=== PATIENT | female | born 1965 | race Caucasian/White ===

== ENCOUNTER 2022-02-22 20:07 | Observation (INO) | payer OTHER, SELFPAY ==
--- NOTE | ~2022-02-22 | XR_ITS ---
EXAM: XR ankle RT min 3V, XR foot RT min 3V DATE: 02/22/2022 20:46 (accession [id number]), 02/22/2022 20:47 (accession [id number]) HISTORY: fall today, lateral pain and swelling . COMPARISON: None available. FINDINGS: Normal mineralization. Minimally displaced oblique fracture of the distal right fibula at the level of the joint line. No other fracture. No lytic or blastic lesion. Joint spaces are maintain ed. Achilles enthesopathy. Mild hallux valgus. No erosion or periosteal change. IMPRESSION: Horn B type right fibular fracture. No other acute osseous finding in the right ankle or foot Reviewed, dictated and finalized at location K. IMPRESSION: Horn B type right fibular fracture. No other acute osseous finding in the right ankle or foot
--- NOTE | ~2022-02-22 | XR_ITS ---
EXAM: XR ankle LT min 3V, XR foot LT min 3V DATE: 02/22/2022 20:46 HISTORY: fall today, lateral pain and swelling . COMPARISON: None available. FINDINGS: Normal mineralization. Nondisplaced transverse fracture of the distal left fibula, below t he level of the joint line. No other fracture detected. No dislocation. No lytic or blastic lesion. M oderate hallux valgus. Plantar enthesopathy. No erosion or periosteal change. IMPRESSION: Horn A type distal left fibular fracture. Reviewed, dictated and finalized at location K. IMPRESSION: Horn A type distal left fibular fracture.
[2022-02-22 20:10] VITALS: BP 123/65; PULSE 81; RESP 17; TEMP 37.3; O2SAT 100
--- NOTE | 2022-02-22 20:19 | ED.LOWEXIN ---
HPI - Extremity Injury (Lower) General Chief Complaint: Extremity Injury, Lower Stated Complaint: Bilateral ankle pain and swelling - fall Time Seen by Provider: 02/22/22 20:18 History of Present Illness HPI Narrative: 56-year-old female presented emergency room complaining of bilateral ankle pain following a fall. Patient states that she was at a relatives house and misstepped falling down 1 stair. Patient states that she landed twisting her left ankle and then attempted overcorrect by landing on her right foot, which then in turn caused her to twist her right ankle. Patient states the left ankle hurts worse than the right. Pain is worse with movement. Patient unable to ambulate Related Data Allergies Allergy/AdvReac Type Severity Reaction Status Date / Time No Known Allergies Allergy Verified 02/22/22 20:29 Review of Systems Review of Systems: CONSTITUTIONAL: Denies fever, chills, or sweats. EYES: Denies visual changes, redness, or discharge. ENT: Denies rhinorrhea, congestion, sore throat, or otalgia. CARDIOVASCULAR: Denies chest pain, palpitations, or edema. RESPIRATORY: Denies cough or dyspnea. GASTROINTESTINAL: Denies abdominal pain, nausea, vomiting, or diarrhea. GENITOURINARY: Denies dysuria or hematuria. SKIN: Denies rash or itching. MUSCULOSKELETAL: Reports bilateral ankle pain NEUROLOGIC: Denies headache, numbness, dizziness, or weakness. PSYCHIATRIC: Denies anxiety or depression. Exam Narrative: GENERAL: Well-appearing, well-nourished, no physical limitations, and in no acute distress. HEAD: Normocephalic, atraumatic. EYES: Conjunctivae normal, PERRLA and EOMI. CHEST: Clear to auscultation. No respiratory distress. No wheezes rales or rhonchi. No tenderness. HEART: Regular rate and rhythm. No murmur heard. Normal peripheral pulses. EXTREMITIES: Right ankle: Tenderness to the lateral malleolus and anterior talofibular ligament with mild soft tissue swelling. No acute bony abnormality, no joint laxity, limited range of motion due to pain, neurovascular is intact distally Left ankle: Tenderness to the lateral malleolus with significant soft tissue swelling. Unable to test for joint laxity and range of motion due to pain. Neurovascular is intact distally no edema. No clubbing or cyanosis SKIN: Warm, dry, no rash. No noted wounds NEURO: No focal deficits. Alert and oriented x3. MAEW. CN's II-XI intact bilaterally PSYCH: Cooperative. Normal mood and affect. Course Vital Signs Vital signs: Vital Signs Temperature 37.3 C 02/22/22 20:10 Pulse Rate 81 02/22/22 20:10 Respiratory Rate 17 02/22/22 20:10 Blood Pressure 123/65 02/22/22 20:10 Pulse Oximetry 100 02/22/22 20:10 Oxygen Delivery Room Air 02/22/22 20:10 Temperature 37.3 C 02/22/22 20:10 Pulse Rate 89 02/22/22 22:58 Respiratory Rate 18 02/22/22 22:58 Blood Pressure 141/82 H 02/22/22 22:58 Pulse Oximetry 98 02/22/22 22:58 Oxygen Delivery Room Air 02/22/22 20:10 MDM - Extremity Injury (Lower) Lab Data Labs: Lab Results 02/22/22 Range/Units 21:54 SARS-CoV-2 RNA (RT-PCR) Negative Discharge Plan Discharge Clinical Impression: Adult failure to thrive, Bilateral ankle fractures Patient Disposition: Still a Patient Condition: Stable Time of Disposition: 22:31
[2022-02-22 22:37] LABS: SARS-CoV-2 RNA PCR Negative
[2022-02-22 22:58] VITALS: BP 141/82; PULSE 89; RESP 18; O2SAT 98
[2022-02-22 23:35] VITALS: BP 141/83; PULSE 86; RESP 18; TEMP 37.7; O2SAT 97
[2022-02-22 23:43] VITALS: BMI 30.1
--- NOTE | 2022-02-22 23:50 | ADMGEN ---
This patient, Marlena Meeks, was admitted to [facility] Surg Room 313-01. Patient/family oriented to hospital policies and general routines including ID bracelet, bed and alarms, visiting hours, pain management, procedures, bathroom and other care routines, personal items, smoking policy, room service/diet, and visiting hours. Information on how to activate the Rapid Response Team has been discussed. Patient/Family are encouraged to report perceived risks to care and to ask questions if they do not understand what they are told or what they should do.
[2022-02-23] MEDS: ACETAMINOPHEN 500 MG TABLET 1000 MG PO ×2 (00:06→09:27)
--- NOTE | 2022-02-23 02:00 | PM.IMHP ---
H&P: HPI History of Present Illness Date/Time: 02/23/22 02:00 Chief Complaint: Fall Narrative: This is a 56-year-old female who is visiting from [place], [place] she has been staying with friends today she had a fall when going down stairs patient was found to have bilateral malleolar fractures. Patient denies any loss of consciousness, no dizziness, no lightheadedness, no near syncope, or syncope. Patient is been admitted for further evaluation, management and treatment. Review of Systems Review of Systems: Fall with bilateral lower extremity malleolar fracture Constitutional: Constitutional: Denies chills, Denies fatigue, Denies fever(s), Denies malaise, Denies poor appetite and Denies weakness Eyes: Eyes: Denies change in vision ENT: Denies dysphagia, Denies vertigo, Denies odynophagia and Denies disequilibrium Cardiovascular: Cardiovascular: Denies chest pain, Denies syncope, Denies irregular heart rhythm, Denies lightheadedness, Denies palpitations and Denies dyspnea on exertion Respiratory: Respiratory: Denies chest congestion, Denies cough and Denies dyspnea Gastrointestinal: Gastrointestinal: Denies abdominal pain, Denies dyspepsia, Denies heartburn, Denies nausea and Denies vomiting Genitourinary: Genitourinary: Denies dysuria Musculoskeletal: Musculoskeletal: Reports abnormal gait, Reports deformity, Reports arthralgias, Reports joint swelling, Reports limited range of motion and Reports other (Bilateral malleolus) Integumentary/Breasts: Skin/Breast: Denies rash Neurologic: Denies vertigo, Denies dizziness, Denies focal weakness and Denies Sensory deficit (Neuro) Psychiatric: Psychiatric: Reports no additional psychiatric complaints and Reports as per HPI Endocrine: Endocrine: Denies cold intolerance, Denies fatigue, Denies flushing, Denies heat intolerance, Denies polyphagia, Denies polydipsia and Denies palpitations Hematologic/Lymphatic: Hematologic/Lymphatic: Reports no additional hematologic/lymphatic complaints and Reports as per HPI Allergic/Immunologic: Allergic/Immunologic: Reports no additional allergic/immunologic complaints and Reports as per HPI PMF Family History Family History (Updated 02/22/22 @ 23:56 by Lakeisha Mercado RN) Father Emphysema lung Mother Emphysema lung Social History Social History Smoking status: Former smoker Second hand tobacco smoke exposure: No Alcohol intake: current Substance use: never Substance use type: does not use Spiritual care concerns: No Meds Home Medications and Allergies Home Medications Medication Instructions Recorded Confirmed Type No Home Medications 02/23/22 02/23/22 History Allergies Allergy/AdvReac Type Severity Reaction Status Date / Time No Known Allergies Allergy Verified 02/22/22 20:29 Vital Signs Vital Signs - 24 hr 02/22/22 20:10 02/22/22 22:58 02/22/22 23:35 Temperature 99.2 F 99.9 F H Pulse Rate 81 89 86 Respiratory Rate 17 18 18 Blood Pressure 123/65 141/82 H 141/83 H Pulse Oximetry 100 98 97 Oxygen Delivery Room Air Exam Narrative: Patient is laying in the stretcher Const: General: comfortable, no acute distress, well developed, alert, awake and other (Well-appearing) Nutritional Appearance: average body habitus Orientation/consciousness: patient oriented x3 HENMT: Head: normal to inspection, normocephalic and atraumatic Ears: hearing grossly normal bilaterally Face and sinus: normal facial exam Eyes: General: appearance normal, both eyes and all related structures Pupils: Equal, round and reactive pupils present EOM: EOMs intact bilaterally Neck: Neck: full ROM, no lymphadenopathy and no JVD Thyroid: thyroid normal Lymphatic: no lymphadenopathy noted Resp: Effort & Inspection: normal respiratory effort and able to speak in complete sentences Auscultation: clear to auscultation bilaterally Cardio: Jugular ve
[2022-02-23 06:00] VITALS: BP 114/68; PULSE 72; RESP 16; TEMP 36.7; O2SAT 99
--- NOTE | 2022-02-23 08:45 | PM.IMPN ---
Progress Note: A&P Assessment and Plan (1) Bilateral ankle fractures: Code(s): S82.891A - Other fracture of right lower leg, initial encounter for closed fracture; S82.892A - Other fracture of left lower leg, initial encounter for closed fracture Status: Acute Assessment and Plan: Ankle xray Horn A fracture on the left fibula and a Horn B fracture of the right fibula Ortho consulted thank you for your help Will need PT/OT Pain medications on board Supportive care Follow-up in the outpatient setting Pain management Time Spent With Patient Time with patient: Greater than 35 minutes Subjective Date/time seen: 02/23/22844 Interval history: 02/23/22844 Patient seems to be doing well. She did state that she is having pain a 3/10 when she is not moving and a 9/10 when she is moving or sometimes when it is The unprovoked. She can not really describe the pain at this time. She did state that she is little tired to the pain. She denies any chest pain, shortness of breath, nausea, vomiting, diarrhea, constipation, weakness or fatigue. She did state that her was flying and today to come and get her to take her home. She did have more pain on the right than the left. Awaiting Orthopedics at this time patient will probably need PT and OT evaluations before she leaves. 02/23/22? 02:00 This is a 56-year-old female who is visiting from [facility] she has been staying with friends today she had a fall when going down stairs patient was found to have bilateral malleolar fractures.? Patient denies any loss of consciousness, no dizziness, no lightheadedness, no near syncope, or syncope.? Patient is been admitted for further evaluation, management and treatment. Review of Systems Review of Systems: All systems reviewed & are unremarkable except as noted in HPI and below Exam Const: General: cooperative, healthy appearing, no acute distress, well developed, alert and awake Nutritional Appearance: well nourished Orientation/consciousness: patient oriented x3 HENMT: Head: normal to inspection Ears: hearing grossly normal bilaterally General nose exam: Normal external nose present Mouth: Yes Normal oral and palatal mucosa present, Yes lip normal and Yes tongue normal Teeth and gingiva: abnormal tooth and associated gingiva and poor dentition Eyes: General: appearance normal, both eyes and all related structures Neck: Neck: normal visual inspection, full ROM, trachea midline and supple Chest: Chest palpation & inspection: normal inspection of the chest Resp: Effort & Inspection: normal respiratory effort and able to speak in complete sentences Auscultation: clear to auscultation bilaterally Cardio: Jugular venous distension: no JVD Rate: regular rate Rhythm: regular rhythm Heart sounds: S1 normal heart sound present and S2 normal heart sound present Peripheral pulses: Peripheral pulses 2+ throughout GI: Inspection: normal to inspection GI Palp: Yes Soft to palpation and No Tenderness to palpation present (GI) Auscultation: normal bowel sounds Skin: General skin exam: normal color and no rashes or lesions noted Lesions: no lesions Rashes: no rashes Trauma: no lacerations or abrasions Wounds: no wounds Hair: normal Nails: normal Neuro: General: patient oriented x3, moves all extremities and Normal light touch and pain sensation Speech: normal speech Gait exam (Neuro): Normal gait present Extrem: General: normal to inspection Right upper extremity: normal to inspection, full ROM and normal capillary refill Left upper extremity: normal to inspection, full ROM and normal capillary refill Right lower extremity: normal to inspection and ankle Details: abnormal ROM Left lower extremity: normal to inspection and ankle Details: abnormal ROM Psych: Appearance: grossly normal Objective Data Vital Signs Vital Signs: Vital Signs - 24 hr 02/22/22 20:10 02/22/22 22:58 06
[2022-02-23 09:33] LABS: Basophils Percent Auto 0.3 % (0.2-1.2); Eosinophils Percent Auto 0.6 % (0-4.4); Hematocrit 40.1 % (37.0-47.0); Hemoglobin 13.3 g/dL (12.0-15.0); Immature Granulocyte Absolute 0.02 K/mm3 (0.00-0.031); Immature Granulocyte Percent A 0.3 % (0-0.5); Lymphocytes Absolute Auto 1.78 K/mm3 (0.9-3.2); Mean Corpuscular HGB Conc 33.2 g/dl (32-36); Mean Corpuscular Hemoglobin 33.5 pg (26-34); Mean Platelet Volume 9.4 fl (7.4-10.4); Monocytes Absolute Auto 0.7 K/mm3 (0.1-0.6); Monocytes Percent Auto 9.1 % (2.6-8.5); Neutrophils Absolute Auto 4.6 K/mm3 (1.3-6.7); Neutrophils Percent Auto 64.7 % (45.5-73.1); Platelet Count Result 188 k/mm3 (150-375); Red Blood Count 3.97 M/mm3 (4.2-5.4); Red Cell Distribution Width 13.2 % (11.5-14.5); White Blood Count 7.1 K/mm3 (4.5-10.0)
[2022-02-23 09:47] LABS: Alanine Aminotransferase 25 U/L (6-35); Albumin Level 4.5 g/dL (3.5-5.1); Alkaline Phosphatase 86 U/L (38-126); Anion Gap 5 mmol/L (8-16); Aspartate Amino Transferase 29 U/L (14-36); Bilirubin,Total 0.8 mg/dL (0.2-1.3); Blood Urea Nitrogen 12 mg/dL (7-17); Calcium 8.9 mg/dL (8.4-10.2); Carbon Dioxide 29 mmol/L (22-30); Chloride 107 mmol/L (98-107); Estimated CRCL calculation 75 ml/min; Estimated Glomerular Filt Rate > 60; Glucose 91 mg/dL (65-110); Sodium 141 mmol/L (137-145)
--- NOTE | 2022-02-23 10:54 | PM.CNOR ---
Assessment and Plan Assessment and plan (1) Bilateral ankle fractures: Code(s): S82.891A - Other fracture of right lower leg, initial encounter for closed fracture; S82.892A - Other fracture of left lower leg, initial encounter for closed fracture Status: Acute Plan 56-year-old female with bilateral ankle fractures. At this point these are non surgical. I think the left one can be treated in an Aircast ankle stirrup at this point. On the right I would recommend re-x-ray in week everything stays put keeping her in the splint for another x-ray a week later. She is going to be heading back to [place] once her gets here in the next day or so and so will follow-up back home with the [facility] where she normally gets her care. Because of the relative immobility I recommend coated aspirin 325 milligram daily for at least six weeks. Thank you for the consultation. History of Present Illness HPI Consult date: 02/23/22 Consult reason: fracture Chief complaint: Bilateral ankle fractures Narrative: 56-year-old female who fell yesterday suffering bilateral ankle fractures. It is a Horn B right, a on left. He has both splinted in the emergency room. Not experiencing very much discomfort. Is currently traveling through the [place] as she is originally from [facility]. [facility] Past Medical History Medical History (Updated 02/23/22 @ 10:58 by Vargas Barclay MD) Bilateral ankle fractures Horn a on the left, Horn B on the right Family History Family History Father Emphysema lung Mother Emphysema lung Social History Social History Smoking status: Former smoker Second hand tobacco smoke exposure: No Alcohol intake: current Substance use: never Substance use type: does not use Spiritual care concerns: No Meds Home Medications and Allergies Home Medications Medication Instructions Recorded Confirmed Type No Home Medications 02/23/22 02/23/22 History Allergies Allergy/AdvReac Type Severity Reaction Status Date / Time No Known Allergies Allergy Verified 02/22/22 20:29 Vital Signs Vital Signs - 24 hr 02/22/22 20:10 02/22/22 22:58 02/22/22 23:35 Temperature 99.2 F 99.9 F H Pulse Rate 81 89 86 Respiratory Rate 17 18 18 Blood Pressure 123/65 141/82 H 141/83 H Pulse Oximetry 100 98 97 Oxygen Delivery Room Air 02/23/22 06:00 Temperature 98.0 F Pulse Rate 72 Respiratory Rate 16 Blood Pressure 114/68 Pulse Oximetry 99 Oxygen Delivery Exam Const: General: cooperative, alert and awake Orientation/consciousness: patient oriented x3 HENMT: Head: normal to inspection Ears: hearing grossly normal bilaterally Resp: Effort & Inspection: able to speak in complete sentences GI: Inspection: non-distended GI Palp: No abdominal tenderness Neuro: General: patient oriented x3 Extrem: Other: Exam of both lower extremities shows nicely fitting stirrup type ankle splints. Calves are negative. Good capillary refill and intact sensation noted to all the toes. Tenderness over the distal fibula bilaterally. Exam is otherwise unremarkable. Psych: Mental Status: mental status grossly normal Radiology Reports: Comments: EXAM:? XR ankle LT min 3V, XR foot LT min 3V DATE: 02/22/2022 20:46 HISTORY: fall today, lateral pain and swelling . COMPARISON:? None available. FINDINGS:? Normal mineralization. Nondisplaced transverse fracture of the distal left fibula, below the level of the joint line. No other fracture detected. No dislocation. No lytic or blastic lesion. Moderate hallux valgus. Plantar enthesopathy. No erosion or periosteal change. IMPRESSION: Horn A type distal left fibular fracture. Reviewed, dictated and finalized at location K. 20:
[2022-02-23 14:00] VITALS: BP 120/64; PULSE 70; RESP 18; TEMP 36.1; O2SAT 97
[2022-02-23] MEDS: ASPIRIN 325 MG ENTERIC TABLET PO (14:09)
[2022-02-23 22:00] VITALS: BP 117/68; PULSE 66; RESP 12; TEMP 36.4; O2SAT 100
[2022-02-23] MEDS: HYDROmorphone HCL INJ (*CRX) 1 MG/ML SYR 0.5 MG IV PUSH (22:00)
[2022-02-24 02:24] VITALS: O2SAT 98
[2022-02-24] MEDS: ACETAMINOPHEN 500 MG TABLET 1000 MG PO (05:38)
[2022-02-24 06:00] VITALS: BP 115/75; PULSE 67; RESP 16; TEMP 35.2; O2SAT 99
[2022-02-24 06:42] LABS: Basophils Percent Auto 0.5 % (0.2-1.2); Eosinophils Absolute Auto 0.1 K/mm3 (0-0.3); Eosinophils Percent Auto 1.1 % (0-4.4); Hematocrit 41.5 % (37.0-47.0); Hemoglobin 13.4 g/dL (12.0-15.0); Immature Granulocyte Absolute 0.02 K/mm3 (0.00-0.031); Immature Granulocyte Percent A 0.3 % (0-0.5); Lymphocytes Absolute Auto 2.24 K/mm3 (0.9-3.2); Lymphocytes Percent Auto 36.2 % (18.3-44.2); Mean Corpuscular HGB Conc 32.3 g/dl (32-36); Mean Corpuscular Hemoglobin 33.2 pg (26-34); Mean Corpuscular Volume 102.7 fl (80-100); Mean Platelet Volume 9.7 fl (7.4-10.4); Monocytes Absolute Auto 0.5 K/mm3 (0.1-0.6); Monocytes Percent Auto 8.6 % (2.6-8.5); Neutrophils Absolute Auto 3.3 K/mm3 (1.3-6.7); Neutrophils Percent Auto 53.3 % (45.5-73.1); Platelet Count Result 185 k/mm3 (150-375); Red Blood Count 4.04 M/mm3 (4.2-5.4); Red Cell Distribution Width 13.2 % (11.5-14.5); White Blood Count 6.2 K/mm3 (4.5-10.0)
[2022-02-24 07:02] LABS: Alanine Aminotransferase 20 U/L (6-35); Alkaline Phosphatase 79 U/L (38-126); Anion Gap 2 mmol/L (8-16); Aspartate Amino Transferase 23 U/L (14-36); Bilirubin,Total 0.9 mg/dL (0.2-1.3); Blood Urea Nitrogen 13 mg/dL (7-17); Calcium 8.5 mg/dL (8.4-10.2); Carbon Dioxide 32 mmol/L (22-30); Chloride 107 mmol/L (98-107); Estimated CRCL calculation 67 ml/min; Estimated Glomerular Filt Rate > 60; Glucose 101 mg/dL (65-110); Magnesium 2.4 mg/dL (1.6-2.3); Potassium 4.2 mmol/L (3.4-5.0); Sodium 141 mmol/L (137-145)
[2022-02-24] MEDS: ASPIRIN 325 MG ENTERIC TABLET PO (08:47)
--- NOTE | 2022-02-24 09:45 | PM.DS ---
DS: Admitting Diagnosis Discharge Date 02/24/2245 Admitting Diagnosis Bilateral ankle fracture DS: Discharge Diagnosis Discharge Diagnosis (1) Bilateral ankle fractures: Code(s): S82.891A - Other fracture of right lower leg, initial encounter for closed fracture; S82.892A - Other fracture of left lower leg, initial encounter for closed fracture Status: Acute Assessment and Plan: Ankle xray Horn A fracture on the left fibula and a Horn B fracture of the right fibula Ortho consulted thank you for your help Will need PT/OT Pain medications on board Supportive care Follow-up in the outpatient setting Pain management Partial weight baring status for transfer only Started gabapentin for the shooting pain DS: Summary Hospital Course Hospital Course: Patient is a 56-year-old female with no significant past medical history presented to the ED after a fall. Patient stated that she had missed the last step on a flight of stairs and fell. X-rays showed Horn A fracture on the left and Horn B fracture on the right. Pain is would mow controlled. Orthopedics was also consulted and patient was placed in a stirrup splint. Patient was able to be partial weight-bearing on the left side for transfers only. Patient is stable per labs and vital signs. Pain is controlled. Currently patient has no complaints including chest pain, shortness a breath, nausea, vomiting, diarrhea, constipation, weakness or fatigue. Patient claims that she slept well and is really concerned about the pain. She also is worried about the drive home however she should be okay if she props her legs up. Her has flown in and has brought a wheelchair for her and will be driving her home. Patient is ready for discharge Status at Discharge Functional status at discharge: wheelchair bound Overall status at discharge: patient is progressing back to baseline Time Spent with Patient Time attestation: Total time spent providing and/or coordinating discharge services: 36 minutes Time spent: Greater than 30 minutes Specific discharge activities: Diagnostic testing, chart review, developing a treatment plan, education, care coordination documentation, physical exam, result review Exam Const: General: cooperative, healthy appearing, comfortable, no acute distress, well developed, alert, awake and other (Well-appearing) Nutritional Appearance: average body habitus and well nourished Orientation/consciousness: patient oriented x3 HENMT: Head: normal to inspection, normocephalic and atraumatic Ears: hearing grossly normal bilaterally General nose exam: Normal external nose present Face and sinus: normal facial exam Mouth: Yes Normal oral and palatal mucosa present, Yes lip normal and Yes tongue normal Teeth and gingiva: abnormal tooth and associated gingiva and poor dentition Eyes: General: appearance normal, both eyes and all related structures Pupils: Equal, round and reactive pupils present EOM: EOMs intact bilaterally Neck: Neck: normal visual inspection, full ROM, no lymphadenopathy, trachea midline, supple and no JVD Thyroid: thyroid normal Lymphatic: no lymphadenopathy noted Chest: Chest palpation & inspection: normal inspection of the chest Resp: Effort & Inspection: normal respiratory effort and able to speak in complete sentences Auscultation: clear to auscultation bilaterally Cardio: Jugular venous distension: no JVD Rate: regular rate Rhythm: regular rhythm Heart sounds: S1 normal heart sound present and S2 normal heart sound present Peripheral pulses: Peripheral pulses 2+ throughout GI: Inspection: normal to inspection Auscultation: normal bowel sounds : General: Yes deferred Skin: General skin exam: normal color and no rashes or lesions noted Lesions: no lesions Rashes: no rashes Trauma: no lacerations or abrasions Wounds: no wounds Hair: normal Nails: normal Neuro: General: patient oriented x3, moves
[2022-02-24] MEDS: GABAPENTIN 100 MG CAPSULE PO (12:11)
[2022-02-24] MEDS: KETOROLAC 15 MG/ML VIAL (*BKC) IV PUSH (12:11)
== END 2022-02-24 11:42 | disposition home or self-care (01) ==
LOC: ANHED 22:31 → ANH3MEDSUR 23:23
PROVIDERS: Admitting Provider Internal Medicine; Emergency Provider Nurse Practitioner Family; Visit Provider Nurse Practitioner
DX: S82.891A Other fracture of right lower leg, initial encounter for closed fracture (principal); S82.892A Other fracture of left lower leg, initial encounter for closed fracture; W19.XXXA Unspecified fall, initial encounter; R62.7 Adult failure to thrive; Z87.891 Personal history of nicotine dependence; Z20.822 Contact with and (suspected) exposure to COVID-19
CPT/HCPCS: 36415; 73610; 73630; 80053; 83735; 85025; 96374; 99285; A9270; C9803; G0378; J1170; J1885; U0003; U0005